=== PATIENT | female | born 1965 | race Caucasian/White ===

== ENCOUNTER 2017-07-18 17:38 | Emergency (ER) | payer BC ==
[2017-07-18 18:23] VITALS: BP 134/88
[2017-07-18] MEDS ORDERED: Tetan/Diph/Pertus SYR(Tdap)* 0.5 ML SYR(BOOSTRIX) use SYR IM ONE (19:22)
--- NOTE | 2017-07-18 19:32 | UC ---
Respiratory Complaint HPI - HPI Summary HPI Summary: Patient presents to the with CC of cough, congestion and feeling of intermittent SOB with cough. Sxs occurring now for over 1 week. Denies fever, sweats and chills. She is otherwise healthy. She has not taken any antibiotics. She has been using theraflu OTC with minimal relief. Denies other concerns at this tiem. Cough is without production. - History of Current Complaint Hx Obtained From: Patient Hx Last Menstrual Period: 07/16/17 ?: Yes Onset/Duration: Sudden Onset Timing: Constant Severity Initially: Mild Severity Currently: Mild Pain Intensity: 5 Pain Scale Used: 0-10 Numeric Character: Cough: Nonproductive Aggravating Factors: Allergens, Deep Breaths, Recumbent Position Alleviating Factors: Bronchodilator, Upright Position Associated Signs And Symptoms: Positive: Pleuritic Chest Pain, URI - Risk Factors Pulmonary Embolism Risk Factors: Negative Cardiac Risk Factors: Negative Pseudomonas Risk Factors: Negative Tuberculosis Risk Factors: Negative <Lissette De La Rosa - Last Filed: 07/18/17 19:28> <Tara Campbell - Last Filed: 07/19/17 20:11> - History of Current Complaint Chief Complaint: UCRespiratory Stated Complaint: SORE THROAT, CHEST CONGESTION Time Seen by Provider: 07/18/17 19:05 - Allergies/Home Medications Allergies/Adverse Reactions: Allergies Allergy/AdvReac Type Severity Reaction Status Date / Time No Known Allergies Allergy Verified 07/18/17 18:24 Home Medications: Home Medications Fluticasone-Salmeterol 250-50* [Advair Diskus 250-50*] 1 puff INH BID 07/18/17 [ History Confirmed 07/18/17] PMH/Surg Hx/FS Hx/Imm Hx Previously Healthy: Yes - Surgical History Surgical History: Yes Surgery Procedure, Year, and Place: knee - Family History Known Family History: Positive: Unknown - Social History Occupation: Employed Full-time Lives: With Family Alcohol Use: Rare Substance Use Type: None Smoking Status (MU): Never Smoked Tobacco - Immunization History Most Recent Influenza Vaccination: none Most Recent Tetanus Shot: unknown <Lissette De La Rosa - Last Filed: 07/18/17 19:28> Review of Systems Constitutional: Negative Skin: Negative ENT: Sore Throat Respiratory: Shortness Of Breath, Cough Cardiovascular: Negative Gastrointestinal: Negative Motor: Negative Neurovascular: Negative Musculoskeletal: Negative Neurological: Negative Is Patient Immunocompromised?: No All Other Systems Reviewed And Are Negative: Yes <Lissette De La Rosa - Last Filed: 07/18/17 19:28> Physical Exam Triage Information Reviewed: Yes Appearance: Well-Appearing, Well-Nourished Vital Signs: Initial Vital Signs Temp 98.9 F 07/18/17 18:17 Pulse 81 07/18/17 18:17 Resp 16 07/18/17 18:17 BP 134/88 07/18/17 18:17 Pulse Ox 97 07/18/17 18:17 Vital Signs Reviewed: Yes Eye Exam: Normal Eyes: Positive: Conjunctiva Clear ENT: Positive: Pharynx normal, TMs normal Dental Exam: Normal Neck exam: Normal Neck: Positive: Supple, No Lymphadenopathy Respiratory Exam: Normal Respiratory: Positive: Chest non-tender, Lungs clear Cardiovascular Exam: Normal Cardiovascular: Positive: RRR Musculoskeletal Exam: Normal Musculoskeletal: Positive: Strength Intact Psychological Exam: Normal Psychological: Positive: Normal Response To Family Skin Exam: Normal <Lissette De La Rosa - Last Filed: 07/18/17 19:28> Vital Signs: Initial Vital Signs Temp 98.9 F 07/18/17 18:17 Pulse 81 07/18/17 18:17 Resp 16 07/18/17 18:17 BP 134/88 07/18/17 18:17 Pulse Ox 97 07/18/17 18:17 <Tara Campbell - Last Filed: 07/19/17 20:11> UC Diagnostic Evaluation - Laboratory O2 Sat by Pulse Oximetry: 97 <Lissette De La Rosa - Last Filed: 07/18/17 19:28> Respiratory Course/Dx - Course Course Of Treatment: Patient evaluated for cough and congestion. Lungs are CTA. She is given tessalon, prednisone and albuterol inhaler. Denies other symptoms. Note given for work and return precautions given. - Differential Dx/Diagnosis Differential Diagnosis/HQI/PQRI: Bronchitis, Exacerbation Of COPD, Sinusitis Provider Diagnoses: Acute Cough <Lissette De La Rosa - Last Filed: 07/18/17 19:28> Discharge <Lissette De La Rosa - Last Filed: 07/18/17 19:28> <Tara Campbell - Last Filed: 07/19/17 20:11> - Discharge Plan Condition: Stable Disposition: HOME Prescriptions: Albuterol HFA INHALER* [Ventolin HFA Inhaler*] 1 puff INH Q4H PRN #1 mdi PRN Reason: Shortness Of Breath Benzonatate CAP* [Tessalon CAP*] 100 mg PO TID #21 cap predniSONE TAB* [Deltasone TAB*] 50 mg PO DAILY #5 tab MDD 1 Patient Education Materials: Benzonatate (By mouth), Acute Cough (ED) Forms: *Work Release Referrals: Jn Monge NP [Primary Care Provider] - Additional Instructions: Humidifier in the home will help. Tylenol for discomfort. Take all medications as directed. Symptoms should resolve in 1-3 weeks. If symptoms become worse, please come back to UC or go to the ED. Honey and lemon hot tea Rest plenty of fluids. Tessalon up to 3 times daily for cough Over the counter cepacol tabs and cough drops will help Albuterol inhaler as needed for shortness of breath Prednisone 50mg daily for 5 days Out of work x 2 days Attestation Statement User Type: Provider - I was available for consult. This patient was seen by the [facility]. The patient was not presented to, seen by, or examined by me. -Alexander <Tara Campbell - Last Filed: 07/19/17 20:11>
== END 2017-07-18 19:29 | disposition home or self-care (01) ==
LOC: UCCORT 17:38
DX: R05 Cough (principal)
CPT/HCPCS: 87651; 90471; 90715; 99212; G0463

== ENCOUNTER 2017-10-03 19:25 | Emergency (ER) | payer BC ==
[2017-10-03 19:44] VITALS: BP 122/74
--- NOTE | 2017-10-03 20:23 | UC ---
Respiratory Complaint HPI - HPI Summary HPI Summary: Cough and congestion for about 2-3 days. She has asthma and has been using albuterol and advair. She has had subjective fever and has had chills. - History of Current Complaint Chief Complaint: UCRespiratory Stated Complaint: COUGH/CONGESTION Time Seen by Provider: 10/03/17 20:11 Hx Obtained From: Patient, Family/Manager Car Hx Last Menstrual Period: n/a Onset/Duration: Gradual Onset, Lasting Days, Still Present Timing: Constant Severity Initially: Moderate Severity Currently: Moderate Character: Cough: Nonproductive Aggravating Factors: Deep Breaths, Recumbent Position Alleviating Factors: Bronchodilator, Upright Position Associated Signs And Symptoms: Positive: Fever, URI, Nasal Congestion. Negative : Calf Pain, Calf Swelling - Allergies/Home Medications Allergies/Adverse Reactions: Allergies Allergy/AdvReac Type Severity Reaction Status Date / Time No Known Allergies Allergy Verified 10/03/17 19:44 Home Medications: Home Medications Albuterol 0.5% CONC NEB.MICHAEL* [Albuterol 0.5ol*] 1 mg .SEE ORDER Q8H PRN [History Confirmed 10/03/17] Naproxen TAB* [Naprosyn 250 mg TAB*] 500 mg PO BID 10/03/17 [History Confirmed 10/03/17] PMH/Surg Hx/FS Hx/Imm Hx Previously Healthy: No - asthma./ - Surgical History Surgical History: Yes Surgery Procedure, Year, and Place: knee - Family History Known Family History: Positive: Unknown - Social History Occupation: Employed Full-time Lives: With Family Alcohol Use: Rare Substance Use Type: None Smoking Status (MU): Never Smoked Tobacco - Immunization History Most Recent Influenza Vaccination: none Most Recent Tetanus Shot: unknown Review of Systems ENT: Sinus Congestion Respiratory: Cough All Other Systems Reviewed And Are Negative: Yes Physical Exam Triage Information Reviewed: Yes Appearance: Well-Appearing, No Pain Distress, Obese Vital Signs: Initial Vital Signs Temp 99.5 F 10/03/17 19:39 Pulse 101 10/03/17 19:39 Resp 20 10/03/17 19:39 BP 122/74 10/03/17 19:39 Pulse Ox 97 10/03/17 19:39 Vital Signs Reviewed: Yes ENT Exam: Normal ENT: Positive: Pharyngeal erythema, Nasal congestion, TMs normal. Negative: Nasal drainage, TM bulging, TM dull, TM red, Hoarse voice Neck: Positive: Supple, Nontender, No Lymphadenopathy Respiratory: Positive: Lungs clear, Normal breath sounds, No respiratory distress, No accessory muscle use. Negative: Respiratory distress, Decreased breath sounds, Accessory muscle use, Crackles, Rhonchi, Stridor, Wheezing Cardiovascular: Positive: RRR, No Murmur, Pulses Normal, Brisk Capillary Refill Abdomen Description: Negative: Distended, Guarding Musculoskeletal: Positive: Strength Intact, ROM Intact, No Edema Neurological: Positive: Alert, Muscle Tone Normal. Negative: Fatigued Psychological: Positive: Age Appropriate Behavior Skin: Negative: rashes UC Diagnostic Evaluation - Laboratory O2 Sat by Pulse Oximetry: 97 Respiratory Course/Dx - Course Course Of Treatment: URI and congestion. She has asthma. We will try steroids. Azithromycin to wait at the pharmacy until day #9. At this point there are no signs of pneumonia. - Differential Dx/Diagnosis Provider Diagnoses: acute bronchitis. acute asthma flare up. Discharge - Discharge Plan Condition: Good Disposition: HOME Prescriptions: Azithromyxin MICHAEL (NF) [Z-Michael (Zithromax) 250 mg tabs #6] 2 tab PO .TODAY, THEN 1 DAILY #6 tab Benzonatate [TESSALON 200 MG CAP] 200 mg PO TID PRN #21 cap PRN Reason: Cough Methylprednisolone [Medrol Dosepak 4 MG*] 4 mg PO .SEE MICHAEL INSTRUCTION #21 tab Patient Education Materials: Upper Respiratory Infection (ED) Forms: *Work Release Referrals: Jn Monge NP [Primary Care Provider] - 2 Days
== END 2017-10-03 20:23 | disposition home or self-care (01) ==
LOC: UCCORT 19:25
DX: J45.901 Unspecified asthma with (acute) exacerbation (principal); J20.9 Acute bronchitis, unspecified
CPT/HCPCS: 99212; G0463